=== PATIENT | female | born 1950 | race Caucasian/White ===

== ENCOUNTER 2019-08-31 21:29 | Emergency (ER) | payer MEDICARE, BC ==
[2019-08-31] MEDS ORDERED: EPINEPHrine 1 MG/ML AMP IM STA (21:41)
[2019-08-31] MEDS ORDERED: DEXAMETHASONE 20 MG/5 ML VIAL IVP ONE (21:41)
--- NOTE | 2019-08-31 21:45 | ED Physician Documentation ---
PD HPI DYSPNEA - Stated complaint Stated Complaint: DIFFICULTY BREATHING - Chief complaint Chief Complaint: Resp - History obtained from History obtained from: Patient - History of Present Illness Timing - onset: Enter time (2099), Today Timing - onset during: Rest Timing - duration: Minutes Timing - details: Abrupt onset, Still present Inciting event(s): Allergic rxn/anaphylaxis Improved by: Benadryl Worsened by: Exertion, Allergens Associated symptoms: No: Fever, Cough, Hemoptysis, Wheezing, Chest pain / discomfort, Palpitations, Diaphoresis, Bilateral edema, Unilateral edema, Anxiety Similar symptoms before: 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 She began to develop symptoms of flushing and shortness of breath at about 8:30 PM she took Benadryl at 9 PM she continued to have redness and difficulty breathing and is come to the emergency department. She feels now that the Benadryl is beginning to help she is able to talk. She has had this happen to her twice previously the initial time she thought this was related to crab. She was tested for shellfish allergy and told she did not have shellfish allergy. She subsequently had another reaction after having a my tie and at that point thought maybe this was related to pineapple. PD PAST MEDICAL HISTORY - Present Medications Home Medications: Ambulatory Orders Medication Instructions Recorded Confirmed predniSONE [Prednisone] 40 mg PO DAILY #10 tablet 08/31/19 - Allergies Allergies/Adverse Reactions: Allergies Allergy/AdvReac Type Severity Reaction Status Date / Time cephalexin [From Keflex] Allergy Rash Verified 08/31/19 21:44 itraconazole [From Sporanox] Allergy Rash Verified 08/31/19 21:44 Penicillins Allergy Hives Verified 08/31/19 21:44 PD ED PE NORMAL - Vitals Vital signs reviewed: Yes (hypertensive mild ) - General General: Alert and oriented X 3, Well developed/nourished, Other (flush appearing but in no distress) - HEENT HEENT: Atraumatic, PERRL, EOMI, Other (pharynx is erythematous and swollen ) - Neck Neck: Supple, no meningeal sign, No bony TTP - Cardiac Cardiac: RRR, No murmur - Respiratory Respiratory: No respiratory distress, Clear bilaterally - Abdomen Abdomen: Soft, Non tender - Back Back: No CVA TTP, No spinal TTP - Derm Derm: Other (Skin is flush in color ) - Extremities Extremities: No deformity, No edema - Neuro Neuro: Alert and oriented X 3, 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, No motor deficit, No sensory deficit, Normal speech Eye Opening: Spontaneous Motor: Obeys Commands Verbal: Oriented GCS Score: 15 - Psych Psych: Normal mood, Normal affect Results - Vitals Vitals: Vital Signs - 24 hr 08/31/19 08/31/19 08/31/19 21:30 22:16 22:43 Temperature 37.2 C Heart Rate 93 84 90 Respiratory 20 22 20 Rate Blood Pressure 139/58 H 96/55 L 128/81 H O2 Saturation 98 100 98 08/31/19 23:04 Temperature Heart Rate 92 Respiratory 22 Rate Blood Pressure 138/73 H O2 Saturation 98 Oxygen O2 Source Room air PD MEDICAL DECISION MAKING - ED course Complexity details: re-evaluated patient, considered differential, d/w patient ED course: 68 y/o female with allergic reaction assumed to be related to mussels has taken benadryl 50mg PO and is some improved on presentation to the ED. She is administered IM epinephrine 0.3mg and dexamethasone 10mg IVP. She has good improvement and wants to go home. She will talk to her manager reimbursement about an epi pen. I have recommended 2 days of antihistamine and 5 days of prednisone. Departure - Departure Disposition: 01 Home, Self Care Clinical Impression: Allergic reaction to shellfish Condition: Stable Instructions: ED Allergic React Food Follow-Up: Your, doctor [Other] Prescriptions: predniSONE [Prednisone] 40 mg PO DAILY #10 tablet Comments: Allergic reaction from food ingestion can go on for several days and the recommendation is to take an antihistamine on a regular basis for the next 2 days and in addition I have prescribed some prednisone to take for the next 5 days. You will not need to start this until tomorrow. Discharge Date/Time: 08/31/19 23:21
[2019-08-31] MEDS ORDERED: DEXAMETHASONE 10 MG/ML VIAL IVP STA (21:50)
[2019-08-31] MEDS ORDERED: MAG HYDROX/AL HYDROX/SIMETH 30 ML UDC PO STA (22:44)
[2019-08-31 23:06] VITALS: BP 138/73
== END 2019-08-31 23:21 | disposition home or self-care (01) ==
LOC: ED 21:29
DX: T78.1XXA Other adverse food reactions, not elsewhere classified, initial encounter (principal); R23.2 Flushing; R06.02 Shortness of breath; X58.XXXA Exposure to other specified factors, initial encounter
CPT/HCPCS: 96372; 96374; 99281; 99284; A9270